=== PATIENT | female | born 1950 | race Caucasian/White ===

== ENCOUNTER → 2016-07-01 | Outpatient (CLI) | payer BC, OTHER ==
[~2016-07-01] MED LIST: LIPITOR10 MG PO; NAPROSYN500 MG PO; NORVASC5 MG PO; SYNTHROID75 MCG PO; ZESTORETIC 20-1 EAC3 PO
== END ==
LOC: RAD 14:21
DX: E66.01 Morbid (severe) obesity due to excess calories (principal)

== ENCOUNTER → 2016-07-06 | Outpatient (CLI) | payer BC, OTHER ==
[~2016-07-06] VITALS: Ht 152.4 cm; Wt 98.0 kg
--- NOTE | ~2016-07-06 | P ---
[facility] [place] [address] PROCEDURE REPORT Name: CHRISTIANO CARVER Pascale Room #: REG [facility]#: [id number] Admission: 07/06/16 Attend Phys: Kyler Meredith MD, F Discharge: Date of : 54 Report #: [id number] THIS REPORT FOR: //name// CC: Peter Meredith DATE OF SERVICE: 07/06/2016 SURGEON: Kyler Meredith M.D. PREOPERATIVE DIAGNOSES: 1. Morbid obesity (body mass index of 42.7). 2. History of laparoscopic adjustable gastric band placement. 3. Dysphagia. 4. Hypertension. 5. Gastroesophageal reflux. 6. Hyperlipidemia. 7. Back pain. 8. Joint pain. POSTOPERATIVE DIAGNOSES: 1. Morbid obesity (body mass index of 42.7). 2. History of laparoscopic adjustable gastric band placement. 3. Abnormal motion of the adjustable gastric band. 4. Dysphagia. 5. Hypertension. 6. Gastroesophageal reflux. 7. Hyperlipidemia. 8. Back pain. 9. Joint pain. PROCEDURE: Thorough esophagogastroduodenoscopy. ANESTHESIA: Propofol 150 mg. SPECIMENS: None. COMPLICATIONS: None appreciated. INDICATIONS FOR PROCEDURE: This is a 65-year-old female patient, being followed for consideration for revision of bariatric surgery. She has a history of laparoscopic adjustable gastric band placement, 5 years ago from which she had lost 28 pounds, only to regain her weight back to her current BMI. She has difficulty with dysphagia and has had limited weight loss success. Her current weight is higher than her weight at the time of band placement. She presents now for further evaluation with an EGD. [facility] [address] [place] [address] PROCEDURE REPORT Name: CHRISTIANO CARVER Room #: REG [facility]#: [id number] Admission: 07/06/16 Attend Phys: Kyler Meredith MD, F Discharge: Date of : 54 Report #: [id number] OPERATIVE FINDINGS: The Z-line and gastroesophageal junction was located at 35 cm with the band located at 37 cm. The band showed abnormal motion with respirations, but more so with swallowing. The patient was felt to have a small hiatal hernia. The esophagus appeared otherwise normal, down to the Z-line. The stomach and duodenum showed no polyps, diverticula, masses, or ulcers. On retroflexion of the scope, the abnormal motion was easy to appreciate. The enfolding of the band was visible. DESCRIPTION OF PROCEDURE IN DETAIL: After the benefits and risks of the procedure were explained to the patient, which include but are not limited to risks of bleeding, infection, perforation, and postprocedural expectations, an informed consent was obtained. The patient was identified in the preprocedure holding area, as well as in the procedure room. A time-out was performed to identify the correct patient and procedure. The patient was then given IV sedation and a bite block was placed by anesthesia. When adequately sedated, the gastroscope was inserted in to the patient's oropharynx, passed down the esophagus with Z-line and band enfolding were seen. The scope was then advanced into the stomach, then beyond the pylorus to the third portion of the duodenum. The scope was then slowly withdrawn. Circumferential views of the duodenum appeared normal. The papilla was also normal in appearance. With the scope withdrawn into the antrum of the stomach, the scope was retroflexed and retrograde view of the cardia and band were seen. The scope was then straightened and slowly withdrawn. The stomach was decompressed. The scope was then withdrawn slowly through the normal appearing esophagus. The patient tolerated the procedure well. She was awakened and returned to the recovery room in stable condition with no apparent complications. <ELECTRONICALLY SIGNED> By: Kyler Meredith MD, FACS 07/08/16 [id number] Kyler Meredith MD, FACS /nt
== END ==
LOC: GI 07:45
DX: K21.9 Gastro-esophageal reflux disease without esophagitis (principal); E66.01 Morbid (severe) obesity due to excess calories; I10 Essential (primary) hypertension; E78.5 Hyperlipidemia, unspecified; Z98.84 Bariatric surgery status; E03.9 Hypothyroidism, unspecified; Z87.891 Personal history of nicotine dependence; Z68.41 Body mass index [BMI] 40.0-44.9, adult
CPT/HCPCS: 62110; 62900